=== PATIENT | female | born 1960 | race Caucasian/White ===

== ENCOUNTER 2016-11-12 21:30 | Observation (INO) | payer OTHER ==
[~2016-11-12] VITALS: Ht 162.6 cm; Wt 117.0 kg
[~2016-11-12 21:30] MED LIST: ASPI81 PO; ATOR80TA41 PO; BACT PO; CEPH500; CIPR500T4 PO; DIPH2%T PO; EXEN10PE SQ; FENO1TAB76 PO; FIORIC PO; FLON0.053; GLIM4 PO; IBUP600T26 PO; LEVEMIR SC; LEVEMIR SQ; LORT5TAB PO; LORTA10 PO; METF-324 PO; PROT40TA PO; PROZ40CA PO; TOPR25TA2 PO
[2016-11-12 21:57] VITALS: BP 141/78; PULSE 117; RESP 20; TEMP 98.3; O2SAT 97
[2016-11-12 22:42] LABS: BLOOD, URINE NEG (NEG); KETONE, URINE TRACE mg/dL (NEG); NITRITE,URINE NEG (NEG)
[2016-11-12 22:47] LABS: CALCIUM OXALATE CRYSTALS,URINE FEW /hpf; GLUCOSE,URINE 1000 OR GREATER mg/dL (NEG); RBC, URINE 0-2 /hpf (0-3); SQUAMOUS EPITHELIAL CELL URINE 0-5 /hpf (0-5); URINE COLOR YELLOW (YELLW/STRAW)
[2016-11-12 22:48] LABS: COMMENT (UR) CULT NOT INDICATED; CULTURE IF INDICATED CULT NOT INDICATED
[2016-11-12 23:03] LABS: AUTOMATED NEUTROPHIL # 10.3 TH/MM3 (1.8-7.7); BASOPHIL # 0.1 TH/MM3 (0-0.2); BASOPHIL % 0.5 % (0.0-2.0); EOSINOPHIL # 0.1 TH/MM3 (0-0.4); EOSINOPHIL % 0.6 % (0.0-4.0); HEMATOCRIT 40.7 % (35.0-46.0); LYMPH % 13.5 % (9.0-44.0); LYMPHOCYTE # 1.8 TH/MM3 (1.0-4.8); MEAN CELL VOLUME 75.8 FL (80.0-100.0); MEAN CORPUSCULAR HEMOGLOBIN 24.7 PG (27.0-34.0); MEAN CORPUSCULAR HGB CONC 32.6 % (32.0-36.0); MONO % 6.3 % (0.0-8.0); NEUT % 79.1 % (16.0-70.0); PLATELET COUNT 367 TH/MM3 (150-450); RED BLOOD COUNT 5.36 MIL/MM3 (4.00-5.30); RED CELL DISTRIBUTION WIDTH 14.8 % (11.6-17.2); WHITE BLOOD COUNT 13.1 TH/MM3 (4.0-11.0)
[2016-11-12 23:04] LABS: HEMO FLAGS DIFF FINAL
[2016-11-12 23:09] LABS: CHLORIDE 104 MEQ/L (98-107); POTASSIUM 3.5 MEQ/L (3.5-5.1); SODIUM (NA) 141 MEQ/L (136-145)
[2016-11-12 23:13] LABS: ANION GAP 11 MEQ/L (5-15); BICARBONATE 26.4 MEQ/L (21.0-32.0); BLOOD UREA NITROGEN 18 MG/DL (7-18)
[2016-11-12] MEDS ORDERED: METF1000 PO (23:13)
[2016-11-12] MEDS ORDERED: DAPA1TAB PO (23:13)
[2016-11-12] MEDS ORDERED: FENO50TA PO (23:13)
[2016-11-12] MEDS ORDERED: GLIM4TAB PO (23:13)
[2016-11-12] MEDS ORDERED: PANT40TA3 PO (23:13)
[2016-11-12] MEDS ORDERED: METO25TA3 PO (23:13)
[2016-11-12] MEDS ORDERED: ATOR1TAB18 PO (23:13)
[2016-11-12] MEDS ORDERED: LEVEMIR SQ (23:13)
[2016-11-12] MEDS ORDERED: FLUO1TAB3 PO (23:13)
[2016-11-12] MEDS ORDERED: BENA25CA4 PO (23:13)
[2016-11-12] MEDS ORDERED: ALBUTEROL SULFATE 90 MCG/ACT HFA 8 GM INHALER INH ONE (23:15)
[2016-11-12 23:16] LABS: ALT (GPT) 34 U/L (10-53); AST (GOT) 15 U/L (15-37); GLOMERULAR FILTRATION RATE 73 ML/MIN (>89)
[2016-11-12 23:17] LABS: TOTAL BILIRUBIN ADULT 0.7 MG/DL (0.2-1.0)
[2016-11-12 23:19] LABS: ALKALINE PHOSPHATASE 74 U/L (45-117)
[2016-11-12] MEDS ORDERED: SODIUM CHLOR 0.9% 1000 ML INJ 1,000 ML IV ONE (23:45)
[2016-11-12] MEDS ORDERED: IOHEXOL 350 MG/ML 10 ML VIAL (for RAD DIAG) IV ONE (23:53)
--- NOTE | 2016-11-12 23:54 | PD ---
HPI Chief Complaint: Abdominal Pain Time Seen by Provider: 23:05 Travel History International Travel<30 days: No Contact w/Intl Traveler<30days: No Traveled to known affect area: No History of Present Illness HPI 56-year-old female arrives with abdominal pain for about 4-5 days. She notes starting Levaquin for UTI about 3 days ago. She's had no fever. She is concerned the pain may reflect a renal stone as it has localized into the region of the right abdomen and she has a history of renal stone. She is also concerned she might have appendicitis. She's had nausea but no vomiting. Location GI/. Severity moderate. Onset gradual. PFSH Past Medical History Asthma: No Blood Disorders: No Anxiety: Yes Depression: No Heart Rhythm Problems: Yes Cancer: No Cardiovascular Problems: No High Cholesterol: Yes Chemotherapy: No Chest Pain: No Congestive Heart Failure: No COPD: No Diabetes: Yes (TYPE II) Patient Takes Glucophage: Yes Diminished Hearing: No Endocrine: Yes GERD: Yes Glaucoma: No Genitourinary: No Headaches: Yes Hepatitis: No Hiatal Hernia: No Hypertension: No Kidney Stones: Yes Medical other: Yes (reflux occasional) Musculoskeletal: No Neurologic: No Psychiatric: Yes Reproductive: No Respiratory: No Radiation Therapy: No Sleep Apnea: No Thyroid Disease: No Triglycerides - High: Yes ?: Not : 2 Para: 2 Ovarian Cysts: Yes (left) Past Surgical History Abdominal Surgery: Yes (CHOLECYSTECTOMY) Cholecystectomy: Yes Genitourinary Surgery: Yes (LITHOTRIPSY X 2, CYSTOSCOPY) Gynecologic Surgery: Yes (LASER ABLASION OF UTERUS, COLD KNIFE CONE, UTERINE ABLATION) Pacemaker: No Other Surgery: Yes (GALL BLADDER REMOVAL, CYSTOSCOPYX2, LITHOTRIPSYX2) Social History Alcohol Use: Yes (rare occ) Tobacco Use: No Substance Use: No Allergies-Medications (Allergen,Severity, Reaction): Coded Allergies: No Known Allergies (Verified , 11/12/16) Reported Meds & Prescriptions Reported Meds & Active Scripts Active Reported Benadryl Allergy (Diphenhydramine HCl) 25 Mg Cap 50 Mg PO HS PRN Metoprolol Tartrate 25 Mg Tab 25 Mg PO DAILY Atorvastatin (Atorvastatin Calcium) 80 Mg Tab 80 Mg PO HS Tricor (Fenofibrate) 145 Mg Tab 145 Mg PO DAILY Takw with food. Levemir Inj (Insulin Detemir) 1,000 unit/ 10 ML Vial 50 Units SQ BID Do not mix with any other Insulin. Levemir Inj (Insulin Detemir) 1,000 unit/ 10 ML Vial 40 Units SQ BID Do not mix with any other Insulin. Fluoxetine (Fluoxetine HCl) 20 Mg Tab 20 Mg PO DAILY Pantoprazole (Pantoprazole Sodium) 40 Mg Tab 40 Mg PO DAILY Farxiga (Dapagliflozin) 5 Mg Tab 5 Mg PO DAILY Glimepiride 4 Mg Tab 4 Mg PO BIDAC Metformin (Metformin HCl) 1,000 Mg Tab 1,000 Mg PO BIDPC With meals Review of Systems Except as stated in HPI: all other systems reviewed are Neg General / Constitutional: No: Fever Gastrointestinal: Positive: Nausea, Abdominal Pain, No: Vomiting Physical Exam Narrative GENERAL: 56-year-old female pleasant well-nourished well-developed SKIN: Focused skin assessment warm/dry. HEAD: Atraumatic. Normocephalic. EYES: Pupils equal and round. No scleral icterus. No injection or drainage. ENT: No nasal bleeding or discharge. Mucous membranes pink and moist. NECK: Trachea midline. No JVD. CARDIOVASCULAR: Regular rate and rhythm. No murmur appreciated. RESPIRATORY: No accessory muscle use. Clear to auscultation. Breath sounds equal bilaterally. GASTROINTESTINAL: Minimal tenderness in the right abdomen. Otherwise soft. No significant flank tenderness. MUSCULOSKELETAL: No obvious deformities. No clubbing. No cyanosis. No edema. NEUROLOGICAL: Awake and alert. No obvious cranial nerve deficits. Motor grossly within normal limits. Normal speech. PSYCHIATRIC: Appropriate mood and affect; insight and judgment normal. Data Data Last Documented VS Vital Signs Date Time Temp Pulse Resp B/P Pulse Ox O2 Delivery O2 Flow Rate FiO2 11/13/16 00:35 108 169/86 95 Room Air 11/12/16 21:57 98.3 20 Vital signs reviewed Orders Complete Blood Count With Diff (11/12/16 22:16) Comprehensive Metabolic Panel (11/12/16 22:16) Urinalysis - C+S If Indicated (11/12/16 22:16) Ed Urine Pregnancytest Poc (11/12/16 22:16) Iv Access Insert/Monitor (11/12/16 22:16) Oximetry (11/12/16 22:16) Lipase (11/12/16 22:16) Albuterol Hfa Inh (Proair Hfa Inh) (11/12/16 23:15) Ct Abd/Pel W Iv Contrast(Rout) (11/12/16 23:39) Sodium Chlor 0.9% 1000 Ml Inj (Ns 1000 M (11/12/16 23:45) Iohexol 350 Inj (Omnipaque 350 Inj) (11/12/16 23:53) Piperacil-Tazo 3.375 Gm Premix (Zosyn 3. (11/13/16 00:30) Ondansetron Inj (Zofran Inj) (11/13/16 00:30) Sodium Chlor 0.9% 1000 Ml Inj (Ns 1000 M (11/13/16 00:30) Admit Order (Ed Use Only) (11/13/16 00:40) Labs Laboratory Tests Test 11/12/16 11/12/16 22:00 22:55 Urine Color YELLOW Urine Turbidity CLEAR Urine pH 6.0 Urine Specific [place] 1.030 Urine Protein NEG mg/dL Urine Glucose (UA) 1000 OR GREATER mg/dL Urine Ketones TRACE mg/dL Urine Occult Blood NEG Urine Nitrite NEG Urine Bilirubin NEG Urine Leukocyte Esterase NEG Urine RBC 0-2 /hpf Urine WBC 3-5 /hpf Urine Squamous Epithelial 0-5 /hpf Cells Urine Calcium Oxalate Crystals FEW /hpf Urine Bacteria NONE /hpf Microscopic Urinalysis Comment CULT NOT INDICATED White Blood Count 13.1 TH/MM3 Red Blood Count 5.36 MIL/MM3 Hemoglobin 13.3 GM/DL Hematocrit 40.7 % Mean Corpuscular Volume 75.8 FL Mean Corpuscular Hemoglobin 24.7 PG Mean Corpuscular Hemoglobin 32.6 % Concent Red Cell Distribution Width 14.8 % Platelet Count 367 TH/MM3 Mean Platelet Volume 8.6 FL Neutrophils (%) (Auto) 79.1 % Lymphocytes (%) (Auto) 13.5 % Monocytes (%) (Auto) 6.3 % Eosinophils (%) (Auto) 0.6 % Basophils (%) (Auto) 0.5 % Neutrophils # (Auto) 10.3 TH/MM3 Lymphocytes # (Auto) 1.8 TH/MM3 Monocytes # (Auto) 0.8 TH/MM3 Eosinophils # (Auto) 0.1 TH/MM3 Basophils # (Auto) 0.1 TH/MM3 CBC Comment DIFF FINAL Differential Comment Sodium Level 141 MEQ/L Potassium Level 3.5 MEQ/L Chloride Level 104 MEQ/L Carbon Dioxide Level 26.4 MEQ/L Anion Gap 11 MEQ/L Blood Urea Nitrogen 18 MG/DL Creatinine 0.82 MG/DL Estimat Glomerular Filtration 73 ML/MIN Rate Random Glucose 136 MG/DL Calcium Level 9.4 MG/DL Total Bilirubin 0.7 MG/DL Aspartate Amino Transf 15 U/L (AST/SGOT) Alanine Aminotransferase 34 U/L (ALT/SGPT) Alkaline Phosphatase 74 U/L Total Protein 7.9 GM/DL Albumin 4.4 GM/DL Lipase 136 U/L [facility] Medical Decision Making Medical Screen Exam Complete: Yes Emergency Medical Condition: Yes Medical Record Reviewed: Yes Differential Diagnosis Constipation, Gastritis, Acute Cholecystitis, Biliary Colic, Pancreatitis, TORRES , Hepatitis, Bowel Obstruction, Cystitis, Mesenteric Ischemia, AAA, Appendicitis , Renal Stone/Hydronephrosis, GERD, perforated viscous Narrative Course CBC & BMP Diagram 11/12/16 22:55 LFTs and lipase normal Urinalysis shows no UTI Last 24 hours Impressions Abdomen/Pelvis CT 11/12/16 1608 Signed Impressions: Service Date/Time: Saturday, November 12, 2016 23:46 - CONCLUSION: 1. Acute appendicitis without perforation or abscess. 2. Heterogeneous uterus likely multiple leiomyomas. 3. Moderate hepatic steatosis. 4. Mild splenomegaly. 5. Small right renal cyst. Jose Silva MD Zosyn and maintenance fluids started. The abdomen is soft. The patient is ambulatory. She'll be admitted to the main site for management of acute appendicitis. Case d/w Dr Yarbrough who requests case be discussed with [facility] surgeon. Call to [facility] surgeon placed at 1230AM. Diagnosis Primary Impression: Acute appendicitis Qualified Code: K35.80 - Acute appendicitis, unspecified acute appendicitis type Admitting Information Admitting Physician Requests: Observation Kareem Marley MD Nov 12, 2016 23:54 Kareem Marley MD Nov 12, 2016 23:54
--- NOTE | 2016-11-13 00:10 | RADHPO ---
EXAM DATE/TIME: 11/12/2016 23:46 [facility] COMPARISON: CT ABDOMEN & PELVIS W/O CONTRAST, July 07, 2013, 23:39. INDICATIONS : Right side abdominal pain with nausea. IV CONTRAST: 100 cc Omnipaque 350 (iohexol) IV ORAL CONTRAST: No oral contrast ingested. RADIATION DOSE: 15.02 CTDIvol (mGy) MEDICAL HISTORY : Gastroesophageal reflux disease. Diabetes mellitus type 2. Renal calculi. SURGICAL HISTORY : Cholecystectomy. ENCOUNTER: Initial ACUITY: 1 day PAIN SCALE: 8/10 LOCATION: Right abdomen TECHNIQUE: Volumetric scanning of the abdomen and pelvis was performed. Using automated exposure control and ad justment of the mA and/or kV according to patient size, radiation dose was kept as low as reasonably achievable to obtain optimal diagnostic quality images. FINDINGS: LOWER LUNGS: The visualized lower lungs are clear. LIVER: Decreased attenuation without lesion. There is no dilation of the biliary tree. Cholecystectomy clip s. SPLEEN: Mildly enlarged measuring 13.6 cm without lesion. PANCREAS: Within normal limits. KIDNEYS: Normal in size and shape. There is no mass, stone or hydronephrosis. Small renal cyst measures 2.1 c m. ADRENAL GLANDS: Within normal limits. VASCULAR: There is no aortic aneurysm. BOWEL/MESENTERY: The stomach, small bowel, and colon demonstrate no acute abnormality. There is no free intraperitone al air or fluid. The appendix is inflamed and prominent in diameter measuring 12 mm. This is consiste nt with acute appendicitis. No perforation or abscess. ABDOMINAL WALL: Within normal limits. RETROPERITONEUM: There is no lymphadenopathy. BLADDER: No wall thickening or mass. Minimal drop of air likely echogenic. REPRODUCTIVE: Within normal limits. INGUINAL: There is no lymphadenopathy or hernia. MUSCULOSKELETAL: Within normal limits for patient age. CONCLUSION: 1. Acute appendicitis without perforation or abscess. 2. Heterogeneous uterus likely multiple leiomyomas. 3. Moderate hepatic steatosis. 4. Mild splenomegaly. 5. Small right renal cyst. Jose Silva MD on November 13, 2016 at 0:04 Board Certified Radiologist. This report was verified electronically.
[2016-11-13] MEDS: SODIUM CHLOR 0.9% 1000 ML INJ 1,000 ML IV SCH ×2 (00:28→08:03)
[2016-11-13] MEDS ORDERED: ONDANSETRON HCL 4 MG/2 ML VIAL IV PUSH ONE ×2 (00:30→12:00)
[2016-11-13] MEDS ORDERED: PIPERACIL-TAZO 3.375 GM PREMIX 50 ML IV ONE (00:30)
[2016-11-13 00:35] VITALS: BP 169/86; PULSE 108; O2SAT 95
[2016-11-13 00:56] VITALS: O2SAT 97
[2016-11-13] MEDS ORDERED: SODIUM CHLORIDE 0.9% FLUSH 10 ML FLUSH IVF PRN (01:00)
[2016-11-13] MEDS ORDERED: PIPERACIL-TAZO 3.375 GM PREMIX 50 ML IV SCH ×2 (01:00→09:00)
[2016-11-13] MEDS ORDERED: PIPERACIL-TAZO 4.5 GM PREMIX 100 ML IV ONE (01:00)
[2016-11-13] MEDS ORDERED: ONDANSETRON HCL 4 MG/2 ML VIAL IV PRN ×2 (01:00→15:00)
[2016-11-13 02:05] VITALS: O2SAT 97
[2016-11-13 03:54] VITALS: BP 136/70; PULSE 108; RESP 20; TEMP 98.5; O2SAT 97
[2016-11-13 08:00] VITALS: PULSE 107
[2016-11-13 08:16] VITALS: BP 121/66; PULSE 109; RESP 22; TEMP 98.7; O2SAT 95
[2016-11-13] MEDS ORDERED: SODIUM CHLORIDE 0.9% FLUSH 10 ML FLUSH IV FLUSH SCH (09:00)
[2016-11-13] MEDS ORDERED: BUPIVACAINE/EPINEPHRINE 0.5% 50 ML VIAL ONE (10:29)
[2016-11-13] MEDS ORDERED: MIDAZOLAM HCL 2 MG/2 ML VIAL ONE (10:54)
[2016-11-13] MEDS ORDERED: ACETAMINOPHEN 1000 MG/100 ML VIAL IV ONE (10:54)
[2016-11-13] MEDS ORDERED: fentaNYL CITRATE 250 MCG/5 ML AMP ONE ×3 (10:54→12:48)
[2016-11-13] MEDS ORDERED: DEXAMETHASONE SOD PHOS 4 MG/ML VIAL ONE (10:55)
[2016-11-13] MEDS ORDERED: ONDANSETRON HCL 4 MG/2 ML VIAL ONE (10:55)
[2016-11-13] MEDS ORDERED: PROPOFOL 200 MG/20 ML AMP IV ONE (12:00)
[2016-11-13] MEDS ORDERED: NEOSTIGMINE 3 MG/3 ML SYR IV ONE (12:00)
[2016-11-13] MEDS ORDERED: *RESP: ALBUTEROL 2.5 MG/3 ML NEB (PRN) PERIprocedural Use ONLY NEB ONE (12:42)
--- NOTE | 2016-11-13 12:49 | HHI.HP ---
General Surgery H&P Brief history: The patient is a 56-year-old woman who began having upper abdominal pain and mild nausea several days ago. The pain gradually located toward the right flank and she was concerned that she might have another kidney stone, as she has had a history of multiple stones in the past. She came to the emergency department in [place] the night prior to surgery and on CT scan was found to have a significantly inflamed appendix without evidence of perforation or abscess. She was subsequently transferred to the main hospital for definitive surgery. At the time of my examination the patient complains of minimal pain in the right lower quadrant. She has had no nausea or vomiting since admission to hospital and has no other complaints. Past medical history: The patient has a significant history of diabetes for which she takes multiple medications. She has had previous laparoscopic cholecystectomy as well as endometrial ablation. She's also had lithotripsy on several occasions for treatment of renal stones. Current medications: Benadryl Allergy (Diphenhydramine HCl) 25 Mg Cap 50 Mg PO HS PRN Metoprolol Tartrate 25 Mg Tab 25 Mg PO DAILY Atorvastatin (Atorvastatin Calcium) 80 Mg Tab 80 Mg PO HS Tricor (Fenofibrate) 145 Mg Tab 145 Mg PO DAILY Takw with food. Levemir Inj (Insulin Detemir) 1,000 unit/ 10 ML Vial 50 Units SQ BID Do not mix with any other Insulin. Levemir Inj (Insulin Detemir) 1,000 unit/ 10 ML Vial 40 Units SQ BID Do not mix with any other Insulin. Fluoxetine (Fluoxetine HCl) 20 Mg Tab 20 Mg PO DAILY Pantoprazole (Pantoprazole Sodium) 40 Mg Tab 40 Mg PO DAILY Farxiga (Dapagliflozin) 5 Mg Tab 5 Mg PO DAILY Glimepiride 4 Mg Tab 4 Mg PO BIDAC Metformin (Metformin HCl) 1,000 Mg Tab 1,000 Mg PO BIDPC With meals No known drug allergies Physical examination: Vital Signs Date Time Temp Pulse Resp B/P Pulse Ox O2 Delivery O2 Flow Rate FiO2 11/13/16 08:16 98.7 109 22 121/66 95 11/13/16 08:00 107 11/13/16 03:54 98.5 108 20 136/70 97 11/13/16 00:56 97 21 11/13/16 00:35 108 169/86 95 Room Air 11/12/16 21:57 98.3 117 20 141/78 97 GEN.: Patient is a well-developed, well-nourished lady who is in minimal distress. HEENT: Normal with no scleral icterus NECK: Supple with no adenopathy or thyromegaly CHEST: Symmetrical with good breath sounds bilaterally with no rales rhonchi or wheezes. HEART: Regular rate and rhythm with no murmurs or gallops. ABDOMEN: Minimally tender in the right lower quadrant with minimal voluntary guarding but no involuntary guarding or rebound. There is no Rovsing sign. EXTREMITIES: No cyanosis clubbing or edema. Peripheral pulses are 2+ and equal bilaterally. NEURO: Patient is awake and alert and oriented 3. Cranial nerves are grossly intact. There are no obvious deficits. Last 24 hours Impressions Abdomen/Pelvis CT 11/12/16 5707 Signed Impressions: Service Date/Time: Thursday, November 12, 2016 23:46 - CONCLUSION: 1. Acute appendicitis without perforation or abscess. 2. Heterogeneous uterus likely multiple leiomyomas. 3. Moderate hepatic steatosis. 4. Mild splenomegaly. 5. Small right renal cyst. Jose Silva MD Laboratory Tests Test 11/12/16 11/12/16 22:00 22:55 Urine Color YELLOW Urine Turbidity CLEAR Urine pH 6.0 Urine Specific [place] 1.030 Urine Protein NEG mg/dL Urine Glucose (UA) 1000 OR GREATER mg/dL Urine Ketones TRACE mg/dL Urine Occult Blood NEG Urine Nitrite NEG Urine Bilirubin NEG Urine Leukocyte Esterase NEG Urine RBC 0-2 /hpf Urine WBC 3-5 /hpf Urine Squamous Epithelial 0-5 /hpf Cells Urine Calcium Oxalate Crystals FEW /hpf Urine Bacteria NONE /hpf Microscopic Urinalysis Comment CULT NOT INDICATED White Blood Count 13.1 TH/MM3 Red Blood Count 5.36 MIL/MM3 Hemoglobin 13.3 GM/DL Hematocrit 40.7 % Mean Corpuscular Volume 75.8 FL Mean Corpuscular Hemoglobin 24.7 PG Mean Corpuscular Hemoglobin 32.6 % Concent Red Cell Distribution Width 14.8 % Platelet Count 367 TH/MM3 Mean Platelet Volume 8.6 FL Neutrophils (%) (Auto) 79.1 % Lymphocytes (%) (Auto) 13.5 % Monocytes (%) (Auto) 6.3 % Eosinophils (%) (Auto) 0.6 % Basophils (%) (Auto) 0.5 % Neutrophils # (Auto) 10.3 TH/MM3 Lymphocytes # (Auto) 1.8 TH/MM3 Monocytes # (Auto) 0.8 TH/MM3 Eosinophils # (Auto) 0.1 TH/MM3 Basophils # (Auto) 0.1 TH/MM3 CBC Comment DIFF FINAL Differential Comment Sodium Level 141 MEQ/L Potassium Level 3.5 MEQ/L Chloride Level 104 MEQ/L Carbon Dioxide Level 26.4 MEQ/L Anion Gap 11 MEQ/L Blood Urea Nitrogen 18 MG/DL Creatinine 0.82 MG/DL Estimat Glomerular Filtration 73 ML/MIN Rate Random Glucose 136 MG/DL Calcium Level 9.4 MG/DL Total Bilirubin 0.7 MG/DL Aspartate Amino Transf 15 U/L (AST/SGOT) Alanine Aminotransferase 34 U/L (ALT/SGPT) Alkaline Phosphatase 74 U/L Total Protein 7.9 GM/DL Albumin 4.4 GM/DL Lipase 136 U/L Impression: Acute appendicitis without obvious perforation Plan: Patient be taken to the operating room for laparoscopic appendectomy. I explained the procedure to her, including the risks of bleeding, infection, perforated viscus, need for reoperation. She understands and is agreeable to the procedure. Moreno Ford MD Nov 13, 2016 12:49
--- NOTE | 2016-11-13 12:55 | PD.OP ---
cc: Moreno Ford MD; John Davis MD Operative Report Date of Surgery: Nov 13, 2016 Preoperative Diagnosis: Acute appendicitis Postoperative Diagnosis: Acute appendicitis Procedure: Laparoscopic appendectomy Anesthesia: Gen. endotracheal Surgeon: Moreno Ford Teacher Citizenship(s): Melanie Daily CFA Operation and Findings: Operative findings: The patient was found to have minimal adhesions from her previous surgical procedures. The appendix itself was somewhat elongated and in its distal 50%, was dilated with a small amount of exudate associated with it indicating mild to moderate and inflammation. There was no evidence of perforation or abscess. Operative procedure: The patient was brought to the operating room and after satisfactory general endotracheal anesthesia was obtained, the abdomen was prepped and draped in usual sterile fashion. 0.5% Marcaine with epinephrine was used to infiltrate the skin for local anesthesia. A small incision was made just above the umbilicus and a 5 mm trocar inserted into the peritoneal cavity under direct visualization, without incident. The abdomen was then insufflated to 15 mmHg using carbon dioxide and the camera reinserted, with, visceral injury inspected for and none being visualized. Under direct visualization a 12 port was placed in the suprapubic region and another 5 mm port was placed in the midline just above the first port. The appendix was identified with minimal problem and was seen to be adherent along the right colic gutter with filmy adhesions. These adhesions were broken up by blunt dissection. The appendix was then grasped with an Endo Humberto and the mesoappendix taken down with the Harmonic scalpel without problem. Once the base of the appendix and been cleared, a powered PATRICK 30 mm white load stapler was placed across the base of the appendix, secured, and fired. The appendix was thus amputated. It was placed within an Endo Catch bag and brought to the 12 mm port without problem. The area of dissection of the mesoappendix was inspected and found to be hemostatic. The area of dissection along the right colic gutter was also inspected and found to be hemostatic. The appendiceal stump was inspected and the staple lines were seen to be intact with no leakage or bleeding. The area was irrigated with saline after which the carbon dioxide was vented as completely as possible to the atmosphere. The ports were removed and the skin incisions were closed with interrupted 4-0 Monocryl sutures. Steri-Strips were placed and the patient was then awakened and taken from the operating room, in satisfactory condition, having tolerated the procedure without problem. Estimated blood loss was less than 5 mL's. The isthmic, sponge, needle counts were reported as being correct 2 at the end of procedure. Moreno Ford MD Nov 13, 2016 12:54
[2016-11-13] MEDS ORDERED: KETOROLAC TROMETHAMINE 30 MG/ML (IVP) VIAL ONE (13:49)
[2016-11-13] MEDS ORDERED: MORPHINE SULFATE 4 MG/ML INJ IV PRN ×2 (15:00)
[2016-11-13] MEDS ORDERED: oxyCODONE/ACETAMINOPHEN 5 MG/325 MG TAB PO PRN ×2 (15:00)
[2016-11-13] MEDS ORDERED: KETOROLAC TROMETHAMINE 30 MG/ML (IVP) VIAL IV PUSH ONE (15:00)
--- NOTE | 2016-11-13 21:07 | EKG ---
Date Performed: 11/13/2016 Time Performed: 10:29:31 PTAGE: 56 years EKG: SINUS TACHYCARDIA INFERIOR MYOCARDIAL INFARCTION , PROBABLY OLD ABNORMAL ECG PREVIOUS TRACING : 07/08/2013 07.33 Compared to prior tracing no significant change DOCTOR: Wilfredo Harrison Interpretating Date/Time 11/13/2016 21:04:56
[2016-11-14 00:29] VITALS: BP 118/74; PULSE 88; RESP 20; TEMP 97.9; O2SAT 99
[2016-12-18] MEDS ORDERED: BOTU100P I-DERMAL (15:52)
== END 2016-11-14 00:28 | disposition home or self-care (01) ==
LOC: PHED 21:30 → PHEDA 11-13 00:41 → NEPHCDU 11-13 03:55
PROVIDERS: ADMIT Surgery; ATTEND Surgery
DX: K35.80 Unspecified acute appendicitis (principal); E11.9 Type 2 diabetes mellitus without complications; K21.9 Gastro-esophageal reflux disease without esophagitis; E78.00 Pure hypercholesterolemia, unspecified; F41.9 Anxiety disorder, unspecified; Z87.442 Personal history of urinary calculi; Z79.84 Long term (current) use of oral hypoglycemic drugs
CPT/HCPCS: 00840; 44970; 74177; 80053; 81001; 83690; 84703; 85025; 88304; 93005; 96361; 96365; 96375; 99285; G0378; J0131; J1100; J1885; J2250; J2405; J2543; J2710; J3010; J7030; J7613; Q9967; 94640